=== PATIENT | male | born 1995 | race Caucasian/White ===

== ENCOUNTER → 2016-09-03 | Day surgery (SDC) | payer OTHER ==
[~2016-09-03] MED LIST: DEPAKOTE PO; FAMOTIDINE PO; MULTI VITAMIN1 EACH PO; NEXIUM PO; NO MEDICATIONS; ST JOHNS WORT PO; ZOFRAN PO
--- NOTE | ~2016-09-03 | OR ---
Unit #: [id number] #: [id number] Patient: ABIODUN BRUNSON I [id number] [address] [address] [id number] O MR#: [id number] NAME: ABIODUN BRUNSNO I. ROOM: Date of Procedure: 09/03/2016 Admission Date: 09/03/2016 Surgeon: Josh Rossi M.D. : 1995 Attending Physician: Josh Rossi M.D. Referring Physician: Josh Rossi M.D. Primary Care Physician: Lázaro Kasper M.D. OPERATIVE REPORT PROCEDURE PERFORMED Esophagogastroduodenoscopy with biopsy and colonoscopy with biopsy. INDICATIONS FOR PROCEDURE The patient with persistent diarrhea, nausea, vomiting, severe weight loss going on for more than a year. MEDICATIONS Monitored anesthesia. POSTOPERATIVE FINDINGS 1. Normal esophagus. 2. Mild gastritis. Biopsies taken. 3. Normal duodenum and distal duodenum. Biopsies taken looking for celiac disease. 4. Colonoscopy completed to cecum and terminal ileum. Prep was very poor leading to suboptimal visualization; however, the visualized part of the mucosa was normal. Random biopsies were taken. 5. Terminal ileum was normal. PLAN Symptomatic treatment. Follow up on pathology report. DESCRIPTION OF PROCEDURE The patient was explained of the procedure, risks, and benefits along with the risks and benefits of anesthesia. He was brought to the endoscopy room. Propofol anesthesia was given. Bite block was placed. The scope was passed down the mouth into the esophagus, stomach, duodenum, and distal duodenum. Findings as described. Biopsies taken. Gently, I pulled the scope out of the patient's mouth. He tolerated it well. At this time, he was turned around and repositioned for colonoscopy. Rectal exam was done, which was normal. Colonoscope was lubricated, passed up the rectum, advanced under direct vision all the way to the cecum. Cecum was identified by ileocecal valve and appendiceal orifice. Terminal ileum was intubated, shows normal mucosa. Visualized colonic mucosa was normal. Random biopsies taken. Gently, I pulled the scope out of the patient's body. He tolerated it well. No major complications were seen. Dictated by... Unit #: [id number] #: [id number] Patient: ABIODUN BRUNSON I Nimo LeblancJ/modl TD: 09/03/2016 22:19 JOB #: [id number] CC: Kacey Chery M.D. OPERATIVE REPORT Page 1 of 1 X Josh Rossi MD X PROCEDURE OPERATIVE NOTE
[2016-09-03 09:58] LABS: BASOPHIL% 0.8 % (0-2.5); EOSINOPHIL% 0.8 % (0.0-7.0); HEMATOCRIT 42.4 % (38.0-50.0); HEMOGLOBIN 14.1 gm/dL (13.0-16.0); LYMPHOCYTE% 34.4 % (17.0-45.0); MEAN CORPUSCULAR HEMOGLOBIN 30.3 PG (28-34); MEAN CORPUSCULAR HGB CONC 33.2 g/dL (30-36); MEAN PLATELET VOLUME 9.7 FL (6.5-11.5); MONOCYTE# 0.4 X10e3 (0-1.0); MONOCYTE% 7.7 % (3.0-12.0); NEUTROPHIL# 3.3 X10e3 (1.5-7.1); NEUTROPHIL% 56.3 % (40-75); PLATELET COUNT 221 X10e3 (140-420); RED BLOOD COUNT 4.65 X10e (3.90-5.60); RED CELL DISTRIBUTION WIDTH 12.9 % (11.0-15.5); WHITE BLOOD COUNT 5.8 X10e3 (4.0-10.5)
[2016-09-03 10:00] LABS: DIFF IND NO
[2016-09-03 10:27] LABS: ALBUMIN SERUM 4.2 g/dL (3.5-5.0); BILIRUBIN,TOTAL 0.9 mg/dL (0.2-2.0); CALCIUM SERUM 9.2 mg/dL (8.4-10.2); GLOM FILT RATE Estimated 107.1 mL/min (>60); PROTEIN TOTAL SERUM 7.1 g/dL (6.0-8.3)
[2016-09-05 00:31] LABS: GLIADIN IGA AB 9 Units (<20); GLIADIN IGG AB 5 Units (<20); RETICULIN IGA SCREEN W/REFLEX Negative (Negative); TISSUE TRANSGLUTAMINASE IGA AB 1 U/mL (<4)
== END | disposition home or self-care (01) ==
LOC: COPS 08:21
PROVIDERS: Internal Medicine
DX: K29.50 Unspecified chronic gastritis without bleeding (principal); K29.80 Duodenitis without bleeding; R19.7 Diarrhea, unspecified; R63.4 Abnormal weight loss; K21.9 Gastro-esophageal reflux disease without esophagitis
CPT/HCPCS: 80053; 83516; 85025; 86140; 86255; 88305; 88312; J2250